=== PATIENT | female | born 1985 | race African-American/Black ===

== ENCOUNTER 2016-08-19 12:16 | Emergency (ER) | payer OTHER ==
[~2016-08-19 12:16] MED LIST: ALBUTEROL17 GM INH; AMOXICILLIN500 M1 PO; ATROVENT HFA12.9 GM INH; BACTRIM DS TABL1 TA1 PO; CIPRO PO; KETOPROFEN PO; LEVAQUIN750 MG PO; NO MEDICATIONS; PULMICORT180 MCG/A1 INH; PULMICORT200 MCG/AE INH; PULMICORT90 MCG/AER INH; SYMBICORT INH
[2016-11-18] MEDS ORDERED: HCTZ PO (18:07)
[2016-11-18] MEDS ORDERED: ALBUTEROL2.5 MG/3 M NEB (18:07)
[2016-11-19] MEDS ORDERED: PERCOCET5/325 (08:40)
[2016-11-22] MEDS ORDERED: OMNICEF300 M1 PO (21:05)
[2016-11-22] MEDS ORDERED: DOXYCYCLINE HY100 M4 PO (21:05)
[2016-11-22] MEDS ORDERED: DIGESTIVE PROB250 MG PO (21:08)
[2016-11-22] MEDS ORDERED: MUCINEX DM ER1 EACH PO (21:10)
[2016-11-22] MEDS ORDERED: PREDNISONE10 MG PO (21:17)
[2016-11-22] MEDS ORDERED: ZIAGEN300 M1 (21:17)
== END 2016-08-19 13:43 | disposition home or self-care (01) ==
LOC: SED 12:16
DX: J02.0 Streptococcal pharyngitis (principal); J45.909 Unspecified asthma, uncomplicated; F17.210 Nicotine dependence, cigarettes, uncomplicated
CPT/HCPCS: 87880; 96372; 99283; J0561